=== PATIENT | male | born 1950 | race Caucasian/White ===

== ENCOUNTER 2023-11-09 08:43 | Outpatient (AMB) | payer OTHER, SELFPAY ==
--- NOTE | 2023-11-09 08:48 | MHC.OFFVIS ---
Intake Vital Signs 11/09/23 08:53 Height 5 ft 11 in Weight 187 lb BMI 26.1 Intake Visit Reasons: FC- Open fx / dislocation LT thumb Intake Note: Meir 72 yr old male who is a right hand dominant, presents today a new patient visit for his left thumb injury. States he tripped over his shoes on . States his thumb hyper extended. States his thumb sherley back so far he has a big laceration and was also dislocated and reduced at Urgent care in [place]. Currently states he has minimal pain and Alieve helps. States his laceration continues to bleed. Allergies Sulfa (Sulfonamide Antibiotics) [SULFA (SULFONAMIDE ANTIBIOTICS)] Adverse Reaction (Intermediate, Unverified 11/09/23 08:53) PAIN HPI FC- Open fx / dislocation LT thumb HPI Details Meir is a 72 year old right hand dominant man who presents for a left thumb injury after a fall, DOI: 11/06/23. He says he fell and hyperextended his left thumb, dislocating it and causing a rupture of the volar tissues. His thumb was reduced at an urgent care. He is seen today with minimal complaints of pain, which is managed with aleve, but he says his cut continues to bleed. He is currently on Keflex. 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 He has a hx of bladder cancer, which he says is in remission, and he denies any other medical concerns. He denies any blood thinners or other medication except for Folic Acid & Vitamin D. [facility] Social History (Updated 11/09/23 @ 08:55 by Dorinda Frias [facility]) Current occupational status: retired Current occupation: right hand Review of Systems Const All systems reviewed & are unremarkable except as noted in HPI and below Physical Exam Vital Signs: BMI result Body Mass Index 26.1 Const General: cooperative, healthy appearing and no acute distress Orientation/consciousness: patient oriented x3 HEENT Head: Yes normocephalic and Yes atraumatic Eyes EOM: EOMs intact bilaterally Resp Effort & Inspection: normal respiratory effort and able to speak in complete sentences Cardio Jugular venous distension: no JVD Skin General skin exam: turgor normal Rashes: no rashes Neuro General: patient oriented x3 Extrem Other: Evaluation of Left Upper Extremity: The patient is alert, oriented, and in no acute distress Neuro: Intact but not normal sensation to ulnar digital nerve distribution of the thumb, and dense numbness to the radial digital nerve distribution of the thumb Vascular: Cap refill brisk ROM: He can make a fist and extend all his fingers. It looks like he might have a faint amount of flexion at the IP joint, but not much Skin: His thumb is swollen He has a transverse laceration, somewhat obliquely oriented, across the volar IP joint of the thumb. This measures ~ 3-4 cm, sutured closed but with some very mild serosanguinous drainage. The dressing was removed today in clinic and we did not see any active bleeding. Cap refill brisk Radiographs: 3 views of the left thumb were taken and viewed by me today in clinic. Concerning the IP joint, on the lateral view, I am concerned he has a volar avulsion fx of the distal phalanx volar base with some subluxation of the DIP joint. I am concerned this may involved the FDP tendon insertion. He also has a non-displaced fx of the distal phalanx radial base. 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 Psych Appearance: grossly normal Affect: normal affect Attitude: cooperative Assessment & Plan Assessment & Plan (1) Open fracture of distal phalanx of left thumb: Code(s): S62.522B - Displaced fracture of distal phalanx of left thumb, initial encounter for open fracture (2) Fracture dislocation of left thumb: Code(s): S62.502A - Fracture of unspecified phalanx of left thumb, initial encounter for closed fracture (3) Numbness of left thumb: Code(s): R20.0 - Anesthesia of skin Plan Assessment & Plan: 1. Left thumb IP joint open fracture dislocation From a fall, DOI: 11/06/23 Reduced and sutures at Urgent care on 11/06/23 2. Possible FDP tendon avulsion/fracture of the insertion 3. Left thumb numbness More normal sensation in the ulnar digital nerve distribution, dense numbness radial digital nerve distribution No laceration, but a rupture of the volar tissues from the dislocation. Cap refill brisk I believe this can be managed non operatively I educated him about these conditions I discussed operative and non-operative treatment options The patient would like to proceed with surgery He was placed in a fresh dressing and a thumb splint to wear until his surgery. The risks and benefits of operative treatment were discussed with the patient and the patient wishes to proceed with surgery. These risks include, but are not limited to risk of damage to blood vessels, nerves, tendons, infection, recurrence, incomplete relief of preoperative symptoms, persistent pain, possible need for further surgery and the risks associated with regional blocks and anesthesia. The plan is to take the patient to the operating room sometime on 11/14/23 for the following procedures: 1. Left thumb I&D, under general 2. Left thumb possible ORIF of distal phalanx, under general 3. Left thumb possible IP joint arthrodesis, under general All of the preoperative paperwork including the consent was filled out today. All the patient's questions were answered. The patient understands that they will be contacted by our farm marketer soon to schedule this procedure He denies Diabetes, blood thinners, asthma, heart, lung, kidney issues He is currently on Keflex Please note that greater than 50 minutes was spent with this patient going over the history, evaluating the patient and radiographs, formulating possible treatment options, discussing them with the patient, and documenting the visit. Scribed for Shantell Pennington MD by Smith Tran, medical records analyst, on 11/09/22 at 9:30 AM, EST. Orders: Orders XR hand LT min 3V Today M79.642 - Pain in left hand Coding Level of Care Code New Pt Level 4 (14593) Diagnoses Open fracture of distal phalanx of left thumb S62.522B Fracture dislocation of left thumb S62.502A Numbness of left thumb R20.0
[2023-11-09 08:53] VITALS: BMI 26.1
== END 2023-11-09 09:54 | disposition home or self-care (01) ==
PROVIDERS: PCP Internal Medicine; Visit Provider Orthopaedic Surgery
DX: S62.522B Displaced fracture of distal phalanx of left thumb, initial encounter for open fracture (principal); R20.0 Anesthesia of skin
CPT/HCPCS: 99204

== ENCOUNTER 2023-11-09 08:43 | Outpatient (REF) | payer OTHER, SELFPAY ==
--- NOTE | ~2023-11-09 | XR_ITS ---
EXAMINATION: XR HAND, LEFT CLINICAL INFORMATION: Pain in left hand, attention left thumb. COMPARISON: None available. TECHNIQUE: PA, lateral, and oblique views of the left hand. FINDINGS: [id number] degenerative changes in the first carpometacarpal joint with joint space narrowing and hypertrophic change. Moderate degenerative changes with hypertrophic change in scattered IP joints, most notable in the IP joints of the thumb, 2nd DIP and 3rd DIP. Fingers overlap on the lateral view, limiting evaluation. Punctate radiodensity in the soft tissues adjacent to the 1st metacarpal head, possibly a foreign body and recommend correlation with clinical exam for further management. XR/XR hand LT min 3V IMPRESSION: 1. Qapjppzu-gx-hbbeqg degenerative changes in the 1st carpometacarpal joint. 2. Moderate degenerative changes with hypertrophic change in scattered IP joints most notable in the thumb, 2nd DIP and 3rd DIP. Recommend follow-up imaging in 10-14 days if fracture is suspected.
== END 2023-11-09 08:44 | disposition home or self-care (01) ==
LOC: HO.HOSX 08:43
PROVIDERS: PCP Internal Medicine; Visit Provider Orthopaedic Surgery
DX: S62.522A Displaced fracture of distal phalanx of left thumb, initial encounter for closed fracture (principal); R20.0 Anesthesia of skin; W18.09XA Striking against other object with subsequent fall, initial encounter; Y93.9 Activity, unspecified; Y92.9 Unspecified place or not applicable; Y99.9 Unspecified external cause status
CPT/HCPCS: 73130; 99202

== ENCOUNTER 2023-11-14 06:51 | Day surgery (SDC) | payer OTHER, SELFPAY ==
--- NOTE | ~2023-11-14 | FL_ITS ---
EXAMINATION: XR FLUOROSCOPY WITH IMAGES CLINICAL INFORMATION: COMPARISON: Previous x-ray 11/09/2023 TECHNIQUE: Fluoroscopy Supervised By: Dr. Shantell Pennington. Fluoroscopy Time: 32.0 seconds. Cumulative Dose: 0.6770 mGy. DAP: 0.0409 Gycm2. Images: 10. FINDINGS: There is abnormal alignment or subluxation of the IP joint of the left thumb. There is a nondisplaced fracture of the distal phalanx of the left intra-articular with the IP joint. There are additional soft tissue ossifications adjacent to the IP joint of the thumb questionable for fracture fragments. Final images demonstrate a new K wire or pin across the IP joint of the thumb FL/FL guidance in OR IMPRESSION: 1. Fluoroscopy guidance for left thumb IP joint arthrodesis. 2. Fracture of the distal phalanx of the left thumb.
[2023-11-14 07:55] VITALS: BMI 26.7
[2023-11-14 08:20] VITALS: BP 148/70; PULSE 54; RESP 16; TEMP 36.7; O2SAT 97
--- NOTE | 2023-11-14 09:02 | HO.ANESPROP2 ---
HPI - Anesthesia Eval Consult details Narrative: 72 yo M with left thumb fracture. Smoker. [facility] Active Problems Active Problems: All Active Problems (Updated 11/09/23 @ 12:39 by Shantell Pennington MD) Numbness of left thumb (Acute) Fracture dislocation of left thumb (Acute) Open fracture of distal phalanx of left thumb (Acute) Family History Family history of problems with anesthesia: No Surgical History History of Problems with Anesthesia: No Social History Social History (Updated 11/09/23 @ 08:55 by Dorinda Frias [facility]) Patient Tobacco Use Status: Current someday Tobacco user Tobacco use type: Cigarette Second Hand Smoke Exposure: No Use of substances other than those prescribed or required for medical reasons: No Are you DNR?: No Advance Directives: No Advance Directives Information Provided: Yes Advance Directives on File: No Current occupational status: retired Current occupation: right hand Meds Allergies Allergy/AdvReac Type Severity Reaction Status Date / Time Sulfa (Sulfonamide AdvReac Intermediate PAIN Verified 11/14/23 08:28 Antibiotics) [SULFA (SULFONAMIDE ANTIBIOTICS)] Home Medications Medication Instructions Recorded Confirmed Last Taken Type cephalexin 500 mg capsule 500 mg PO BID 11/09/23 11/14/23 11/13/23 History folic acid 1 mg tablet 1 mg PO DAILY 11/09/23 11/14/23 11/13/23 History Exam Exam Date and Time: November 14, 2023 0900 Height,Weight and Vital Signs: Height 5 ft 11 in Weight 86.693 kg Last Vital Signs Temp 98.0 F 11/14/23 08:20 Pulse 54 11/14/23 08:20 Resp 16 11/14/23 08:20 BP 148/70 H 11/14/23 08:20 Pulse Ox 97 11/14/23 08:20 O2 Del Method Room Air 11/14/23 08:20 Airway Mallampati Class: I TM Dist: >3cm Neck ROM: Full Loose/Missing/Broken Teeth: Yes (temporary tooth left upper jaw removed - left at home) Heart: S1S2 Lungs: CTAB Assessment and Plan Assessment Anesthesia Assessment: Anesthesia Plan Discussed and Chart Reviewed Final Anesthetic Review Family History of Problems with Anesthesia: No History of Problems with Anesthesia: No NPO: Yes ASA Class: II Final Preanesthetic Review: No Changes in Pt Med Stat, Meds/Allgs Chart Reviewed, Consent Obtained/Reviewed and Anes Risks/Benef Reviewed Patient Risk: Low Procedure Risk: Low Anesthetic Plan Anesthetic Plan: GA and Agree w/ Assess. and Plan Disposition: Standard PACU
--- NOTE | 2023-11-14 09:04 | MHC.SHP ---
Pre-Procedural Eval Section A Date of Service: 11/14/23 The patient is an INPATIENT: No Changes since office visit: No Cold of Flu in the past 2 weeks, No New Medical Problems, No Changes in Medication and No Patient answered all questions The History & Physical has been completed within 30 days and I have reviewed it.: Yes Section B Chief Complaint: Dislocation of interphalangeal joint of unspecifie Allergies: Allergies Allergy/AdvReac Type Severity Reaction Status Date / Time Sulfa (Sulfonamide AdvReac Intermediate PAIN Verified 11/14/23 08:28 Antibiotics) [SULFA (SULFONAMIDE ANTIBIOTICS)] Plan I have reviewed the history and physical and performed a pertinent physical examination on my patient. No changes have occurred unless specified. Time Spent With Patient Time: Total time managing care of this patient today ____ minutes.
--- NOTE | 2023-11-14 09:04 | W.PM.OPN ---
Operative Note Operative Note Date of Service: 11/14/23 Narrative: Operative Note Narrative: Preop diagnosis: 1. left thumb open distal phalanx fracture and dorsal dislocation Postop diagnosis: Same Procedure: 1. left thumb distal phalanx fracture and IP joint dislocation ORIF 2. left thumb I&D of open fracture Surgeon: Shantell Pennington MD Anesthesia: General Anesthesia Findings: left thumb FPL tendon insertion intact , avulsion fracture off the volar radial aspect of the distal phalanx with displacement, grossly unstable IP joint with dorsal dislocation Implants: 0.054 K-wire x1 Tourniquet time: 49 minutes EBL: Minimal Specimen: None Drains: None Complications: None Disposition: Brought to the recovery room in stable condition Plan: Follow-up in 10-14 days for a wound check, postop radiographs and for placement in a short-arm thumb spica cast or splint Anticipate K-wire removal at 6-8 weeks postop, if pin site doing well try to keep her 8 weeks to allow for increased stiffness instability At the IP joint. Indications: The patient is 72 years old with with an open left thumb IP joint dorsal dislocation and fracture off the volar radial aspect of the distal phalanx. He also has some dense numbness in the radial digital nerve distribution. There is a deep skin tear down to the joint and fracture on the volar aspect of the thumb, with a history of no sharp laceration. . The risks and benefits of operative treatment, including but not limited to risk of damage to blood vessels, nerves, tendons, infection, recurrence, delayed or nonunion of fracture, persistent pain or numbness, incomplete resolution of preoperative symptoms, or need for further surgery were discussed with the patient and they wished to proceed with surgery. Procedure: Once consent was obtained patient was brought back to the operating suite and placed in the operating table in a supine position. [A regional block was performed by the anesthesia team]. Perioperative antibiotics and general anesthesia was administered by the anesthesia team. A tourniquet was applied to the proximal aspect of the [ ] upper extremity and the limb was prepped and draped in a standard surgical fashion. Tourniquet was not inflated during the case. The FluoroScan was used during the case to assist with our fracture reduction and placement of all implants. The sutures were removed from the thumb, as he had the skin tear on the volar aspect of the IP joint. I then dissected down easily to the fracture fragment on the volar radial aspect of the IP joint and the IP joint in general. I was happy to see that the FPL tendon insertion appeared to be intact, and the FPL tendon in good condition. At this point the fracture fragment and IP joint were copiously irrigated with normal saline. A small curette was used to debride the bony fracture. The IP joint was then reduced and a 0.054 K-wire was placed retrograde through the tip of the distal phalanx. This was then advanced across the IP joint and down to the base of the middle phalanx. I was satisfied with our reduction of the IP joint and placement of this K-wire on multiple fluoroscopic images. the pin was bent cut short had a pin cap applied. I then attempted to reduce the fracture fragment off the volar radial base of the distal phalanx, as it does have ligamentous attachment. The fracture fragment was reduced and a 0.045 K-wire was passed through the fragment and obliquely across the body of the distal phalanx. Unfortunately, this resulted in fragmentation of this bony fragment. The K-wire was then removed. The fracture fragments with the ligamentous attachment were then positioned near the bony fracture surface. I elected to place no for the K-wires at this point , as I believe we can obtain stability of the joint in this 72-year-old man by keeping the K-wire in place to allow for some stiffness in the joint. The wounds were Again copiously irrigated with normal saline. a digital block was performed using some 0.5% plain ropivacaine for postop pain control. A Sterile dressing and Volar thumb spica splint extending to the forearm was applied. The patient appears to have tolerated the procedure well and with no complications. All digits were well vascularized at the conclusion of the case.
[2023-11-14 11:05] VITALS: BP 152/87; PULSE 83; RESP 20; TEMP 36.1; O2SAT 93
[2023-11-14 11:10] VITALS: BP 159/84; PULSE 60; RESP 20; O2SAT 92
[2023-11-14 11:15] VITALS: BP 153/81; PULSE 62; RESP 20; O2SAT 92
[2023-11-14 11:20] VITALS: BP 123/64; PULSE 56; RESP 20; O2SAT 88
[2023-11-14 11:35] VITALS: BP 138/79; PULSE 56; RESP 20; TEMP 36.4; O2SAT 98
== END 2023-11-14 12:12 | disposition home or self-care (01) ==
PROVIDERS: PCP Internal Medicine; Visit Provider Orthopaedic Surgery
PROC: (CPT 26765; principal; 2023-11-14 08:40)
DX: S62.522B Displaced fracture of distal phalanx of left thumb, initial encounter for open fracture (principal); M18.12 Unilateral primary osteoarthritis of first carpometacarpal joint, left hand; R20.0 Anesthesia of skin; W01.0XXA Fall on same level from slipping, tripping and stumbling without subsequent striking against object, initial encounter; Y93.01 Activity, walking, marching and hiking; Y92.009 Unspecified place in unspecified non-institutional (private) residence as the place of occurrence of the external cause; Y99.8 Other external cause status; Z85.51 Personal history of malignant neoplasm of bladder; Z88.2 Allergy status to sulfonamides; F17.210 Nicotine dependence, cigarettes, uncomplicated; Z79.899 Other long term (current) drug therapy
CPT/HCPCS: 26765; J0690; J1100; J2371; J2405; J2704; J2795; J3010

== ENCOUNTER → 2023-11-14 06:51 | Outpatient (BNV) | payer OTHER, SELFPAY | PROVIDERS: PCP Internal Medicine; Visit Provider Orthopaedic Surgery | DX: S62.522B Displaced fracture of distal phalanx of left thumb, initial encounter for open fracture (principal) | CPT/HCPCS: 26765 ==

== ENCOUNTER 2023-11-28 08:17 | Outpatient (REF) | payer OTHER, SELFPAY ==
--- NOTE | ~2023-11-28 | XR_ITS ---
EXAMINATION: XR HAND, LEFT CLINICAL INFORMATION: Pain in left hand COMPARISON: Left hand 11/09/2023 TECHNIQUE: PA, lateral, and oblique views of the left hand. FINDINGS: Satisfactory appearance of interval placement of K wire across the IP joint of the thumb. Alignment is within normal limits. There is moderate degenerative change with hypertrophic change in the IP joint of the thumb. Comminuted intra-articular fracture of the base of the distal phalanx of the thumb with small bony fragment inferior to the fracture site. Punctate radiodensity seen in the soft tissues adjacent to the first metacarpal head. There is moderate degenerative change of the first carpometacarpal joint. There are scattered degenerative changes including the cyst second DIP and third DIP joints. XR/XR hand LT min 3V IMPRESSION: 1. Satisfactory appearance of interval placement of K wire across the IP joint of the thumb. 2. Comminuted intra-articular fracture of the base of the distal phalanx of the thumb.
== END 2023-11-28 08:18 | disposition home or self-care (01) ==
LOC: HO.HOSX 08:17
PROVIDERS: Visit Provider Physician Assistant
DX: S62.525D Nondisplaced fracture of distal phalanx of left thumb, subsequent encounter for fracture with routine healing (principal); M79.642 Pain in left hand; R20.0 Anesthesia of skin; X58.XXXD Exposure to other specified factors, subsequent encounter
CPT/HCPCS: 29085; 73130; 99212

== ENCOUNTER 2023-11-28 09:06 | Outpatient (AMB) | payer OTHER, SELFPAY ==
--- NOTE | 2023-11-28 09:14 | A.OFFVIS_ITS ---
Intake Intake Visit Reasons: PO Lt thumb I&D ORIF vs IP artho 11/14/23 AR Intake Note: Meir 73 year old male presents today for a post operative left thumb ORIF, I&D on 11/14/23. Splint removed and xrays updated. Patient reports he is doing well, his pain has been tolerable. Allergies Sulfa (Sulfonamide Antibiotics) [SULFA (SULFONAMIDE ANTIBIOTICS)] Adverse Reaction (Intermediate, Verified 11/28/23 09:28) PAIN HPI PO Lt thumb I&D ORIF vs IP artho 11/14/23 AR HPI Details 73-year-old male who [facility]op left thumb ORIF, I&D, 11/14/[address] Pennington. He continues to have swelling and tolerable pain in his thumb but is doing well overall. He has no other concerns today. [facility] Social History Comment: counts correct Patient Tobacco Use Status: Current someday Tobacco user Tobacco use type: Cigarette Second Hand Smoke Exposure: No Current occupational status: retired Current occupation: right hand Review of Systems Const All systems reviewed & are unremarkable except as noted in HPI and below Physical Exam Extrem Other: Left thumb: Normal to inspection. Incision is clean, dry and intact. Pin site clean, dry and intact. NVI. Office Procedures Casting/Splints 50862-[facility]/Wrist Cast Application Procedure code (CPT) selection complete Results Reviewed Results Reviewed: X-rays of the left hand obtained in the office today show pin in a good position and fracture fragment stable. Assessment & Plan Assessment & Plan (1) Fracture dislocation of left thumb: Code(s): S62.502A - Fracture of unspecified phalanx of left thumb, initial encounter for closed fracture Qualifiers: Encounter type: subsequent encounter Fracture type: closed Fracture healing: with routine healing Qualified Code(s): S62.502D - Fracture of unspecified phalanx of left thumb, subsequent encounter for fracture with routine healing (2) Open fracture of distal phalanx of left thumb: Code(s): S62.522B - Displaced fracture of distal phalanx of left thumb, initial encounter for open fracture Qualifiers: Encounter type: subsequent encounter Fracture alignment: nondisplaced Fracture healing: with routine healing Qualified Code(s): S62.525D - Nondisplaced fracture of distal phalanx of left thumb, subsequent encounter for fracture with routine healing (3) Numbness of left thumb: Code(s): R20.0 - Anesthesia of skin Plan Sutures removed today, steri strips applied. Pin will remain intact for another 4-6 weeks which will total 6-8 weeks since his DOI. He was placed in a short arm thumb spica cast in the office today. He will avoid any type of lifting, pushing, pulling or carrying greater than a cellphone. I did inform that if he gets this wet or dirty, he should come to the office to get this changed. I would like to see him back in 4-5 weeks for cast off, x-rays, with Dr. Pennington, sooner if needed. Anticipate K-wire removal at 6-8 weeks postop, if pin site doing well try to keep 8 weeks to allow for increased stiffness instability At the IP joint. Orders: Orders XR hand LT min 3V Today M79.642 - Pain in left hand Patient Instructions: Scribed for Merly Holder PA-C, by John Ruiz bilingual medical receptionist, on 11/28/2023 at 9:15 AM EST. I, Merly Holder PA-C, have personally reviewed and agree with the information entered by the scribe. Coding Level of Care Code Global (86456) Diagnoses Closed fracture dislocation of left thumb with routine healing, subsequent encounter S62.502D Encounter type: subsequent encounter Fracture type: closed Fracture healing: with routine healing Open nondisplaced fracture of distal phalanx of left thumb with routine healing, subsequent encounter S62.525D Encounter type: subsequent encounter Fracture alignment: nondisplaced Fracture healing: with routine healing Numbness of left thumb R20.0 CPT Codes Casting - CPT: 08055-[facility]/Wrist Cast Application ([id number])
== END 2023-11-28 10:44 | disposition home or self-care (01) ==
PROVIDERS: PCP Internal Medicine; Visit Provider Physician Assistant
DX: S62.525D Nondisplaced fracture of distal phalanx of left thumb, subsequent encounter for fracture with routine healing (principal); R20.0 Anesthesia of skin
CPT/HCPCS: 29085; 99024

== ENCOUNTER 2023-12-12 12:40 | Outpatient (AMB) | payer OTHER, SELFPAY ==
--- NOTE | 2023-12-12 12:57 | A.OFFVIS_ITS ---
Intake Intake Visit Reasons: PO-Lt thumb I&D ORIF vs IP -cast change Intake Note: Haley 73 year old male presents today for a cast change s/p left thumb I&D, ORIF on 11/14/23. Patient reports that he feels his dressing around pin has moved. Allergies Sulfa (Sulfonamide Antibiotics) [SULFA (SULFONAMIDE ANTIBIOTICS)] Adverse Reaction (Intermediate, Verified 12/12/23 13:12) PAIN HPI PO-Lt thumb I&D ORIF vs IP -cast change HPI Details 73-year-old male who returns to the [facility] today for post-op left thumb I&D, ORIF on 11/14/23. He states his gauze got caught on the pin and the dressing around the pin has moved. He has no other concerns today. [facility] Social History Comment: counts correct Patient Tobacco Use Status: Current someday Tobacco user Tobacco use type: Cigarette Second Hand Smoke Exposure: No Current occupational status: retired Current occupation: right hand Review of Systems Const All systems reviewed & are unremarkable except as noted in HPI and below Physical Exam Extrem Other: Left thumb: Pin is intact. There is no evidence of pin migration. NVI. Office Procedures Casting/Splints 58283-Iqrj/Wrist Cast Application Procedure code (CPT) selection complete Results Reviewed Results Reviewed: Xrays were obtained in the office today and personally reviewed by me of the left hand show intact pin Assessment & Plan Assessment & Plan (1) Fracture dislocation of left thumb: Code(s): S62.502A - Fracture of unspecified phalanx of left thumb, initial encounter for closed fracture Qualifiers: Encounter type: subsequent encounter Fracture healing: with routine healing Fracture type: closed Qualified Code(s): S62.502D - Fracture of unspecified phalanx of left thumb, subsequent encounter for fracture with routine healing (2) Open fracture of distal phalanx of left thumb: Code(s): S62.522B - Displaced fracture of distal phalanx of left thumb, initial encounter for open fracture Qualifiers: Encounter type: subsequent encounter Fracture alignment: nondisplaced Fracture healing: with routine healing Qualified Code(s): S62.525D - Nondisplaced fracture of distal phalanx of left thumb, subsequent encounter for fracture with routine healing (3) Numbness of left thumb: Code(s): R20.0 - Anesthesia of skin Plan Pin was well padded and another thumb spica cast was placed in the office today. He will follow-up as planned with Dr. Pennington. Orders: Orders XR hand LT min 3V Today M79.642 - Pain in left hand Patient Instructions: Scribed for Merly Holder PA-C, by John Ruiz medical office technologist, on 12/12/2023 at 12:30 PM EST. I, Merly Holder PA-C, have personally reviewed and agree with the information entered by the scribe. Coding Level of Care Code Global (64710) Diagnoses Closed fracture dislocation of left thumb with routine healing, subsequent encounter S62.502D Encounter type: subsequent encounter Fracture healing: with routine healing Fracture type: closed Open nondisplaced fracture of distal phalanx of left thumb with routine healing, subsequent encounter S62.525D Encounter type: subsequent encounter Fracture alignment: nondisplaced Fracture healing: with routine healing Numbness of left thumb R20.0 CPT Codes Casting - CPT: 72168-Xhwm/Wrist Cast Application ([id number])
== END 2023-12-12 13:59 | disposition home or self-care (01) ==
PROVIDERS: PCP Internal Medicine; Visit Provider Physician Assistant
DX: S62.525D Nondisplaced fracture of distal phalanx of left thumb, subsequent encounter for fracture with routine healing (principal); R20.0 Anesthesia of skin
CPT/HCPCS: 29085; 99024

== ENCOUNTER 2023-12-12 12:40 | Outpatient (REF) | payer OTHER, SELFPAY ==
--- NOTE | ~2023-12-12 | XR_ITS ---
EXAMINATION: XR HAND, LEFT CLINICAL INFORMATION: Left hand pain COMPARISON: 11/09 and 11/28/2023 TECHNIQUE: PA, lateral, and oblique views of the left hand. FINDINGS: K wire traverses first proximal and distal phalanges. Alignment appears satisfactory. There is limited evaluation of first distal phalangeal intra-articular fracture with adjacent small bony fracture fragment due to overlying cast. Interphalangeal joint space narrowing and degenerative changes first carpometacarpal joint again demonstrated. Punctate metallic hyperdensity adjacent to the first metacarpal head again seen. XR/XR hand LT min 3V IMPRESSION: Casted, fixated first interphalangeal intra-articular fracture.
== END 2023-12-12 12:41 | disposition home or self-care (01) ==
LOC: HO.HOSX 12:40
PROVIDERS: PCP Internal Medicine; Visit Provider Physician Assistant
DX: M79.642 Pain in left hand (principal); S62.525A Nondisplaced fracture of distal phalanx of left thumb, initial encounter for closed fracture; X58.XXXA Exposure to other specified factors, initial encounter; Y93.9 Activity, unspecified; Y92.89 Other specified places as the place of occurrence of the external cause; Y99.9 Unspecified external cause status; R20.0 Anesthesia of skin
CPT/HCPCS: 29085; 73130; 99212

== ENCOUNTER 2023-12-28 08:54 | Outpatient (REF) | payer OTHER, SELFPAY ==
--- NOTE | ~2023-12-28 | XR_ITS ---
EXAMINATION: XR HAND, LEFT CLINICAL INFORMATION: Pain in left hand Attention to thumb COMPARISON: None available. TECHNIQUE: PA, lateral, and oblique views of the left hand. FINDINGS: Satisfactory appearance of placement of K wire across the IP joint of the thumb. Alignment is within normal limits. There is moderate degenerative change with hypertrophic change and the IP joint of the thumb. Comminuted intra-articular fracture of the base of the distal phalanx of the thumb with small bony fragment inferior to the fracture site is again noted. Punctate radiodensities is seen in the soft tissues adjacent to the first metacarpal head. There is moderate degenerative change of the first carpometacarpal joint. There is scattered degenerative changes including the second DIP joint and the third DIP joint. XR/XR hand LT min 3V IMPRESSION: 1. Satisfactory appearance of K wire across the IP joint of the thumb. 2. No change in position or alignment of comminuted intra-articular fracture of the base of the distal phalanx of the thumb.
== END 2023-12-28 08:55 | disposition home or self-care (01) ==
LOC: HO.HOSX 08:54
PROVIDERS: Visit Provider Orthopaedic Surgery
DX: M79.642 Pain in left hand (principal); S62.525D Nondisplaced fracture of distal phalanx of left thumb, subsequent encounter for fracture with routine healing; X58.XXXD Exposure to other specified factors, subsequent encounter; R20.2 Paresthesia of skin
CPT/HCPCS: 73130; 99212

== ENCOUNTER 2023-12-28 11:02 | Outpatient (AMB) | payer OTHER, SELFPAY ==
--- NOTE | 2023-12-28 11:24 | A.OFFVIS_ITS ---
Intake Intake Visit Reasons: PO-Lt thumb I&D ORIF vs IP artho 11/14/23 AR Intake Note: Haley 73 year old male presents today for his P/O left thumb I&D, ORIF on 11/14/23. Cast removed and xrays updated. States he has stiffness and soreness however he is doing well over. Allergies Sulfa (Sulfonamide Antibiotics) [SULFA (SULFONAMIDE ANTIBIOTICS)] Adverse Reaction (Intermediate, Verified 12/28/23 11:25) PAIN HPI PO-Lt thumb I&D ORIF vs IP artho 11/14/23 AR HPI Details Meir is a 73 year old right hand dominant man who returns S/P left thumb distal phalanx ORIF, with IP joint dislocation & I&D, DOS: 11/14/23. He says he is doing well. He has some stiffness in his thumb and still has some numbness at the tip [facility] Social History Comment: counts correct Patient Tobacco Use Status: Current someday Tobacco user Tobacco use type: Cigarette Second Hand Smoke Exposure: No Current occupational status: retired Current occupation: right hand Review of Systems Const All systems reviewed & are unremarkable except as noted in HPI and below Physical Exam Const General: no acute distress and alert Orientation/consciousness: patient oriented x3 Neuro General: patient oriented x3 Extrem Other: The patient was alert oriented and in no acute distress The pin-site is healing well with no erythema drainage or evidence of infection. Sutures removed and Steri-Strips applied He very much wanted his K-wire removed today in clinic. K-wire removed today in clinic, which he tolerated well He can make a fist Good wrist ROM He still has some numbness to the radial aspect of the tip of his left thumb, normal sensation to the ulnar aspect of the thumb and all other digits. Cap refill is brisk Radiographs: 3 views of the left hand, with attention to the thumb, were taken and viewed by me today in clinic. They show a thumb distal phalanx fracture with satisfactory position of The IP joint & the K-wire. Psych Appearance: grossly normal Affect: normal affect Attitude: cooperative Assessment & Plan Assessment & Plan (1) Open fracture of distal phalanx of left thumb: Code(s): S62.522B - Displaced fracture of distal phalanx of left thumb, initial encounter for open fracture Qualifiers: Encounter type: subsequent encounter Fracture alignment: nondisplaced Fracture healing: with routine healing Qualified Code(s): S62.525D - Nondisplaced fracture of distal phalanx of left thumb, subsequent encounter for fracture with routine healing (2) Fracture dislocation of left thumb: Code(s): S62.502A - Fracture of unspecified phalanx of left thumb, initial encounter for closed fracture Qualifiers: Encounter type: subsequent encounter Fracture healing: with routine healing Fracture type: closed Qualified Code(s): S62.502D - Fracture of unspecified phalanx of left thumb, subsequent encounter for fracture with routine healing (3) Numbness of left thumb: Code(s): R20.0 - Anesthesia of skin Plan Assessment & Plan: 1. Left thumb IP joint open fracture dislocation, S/P ORIF From a fall, DOI: 11/06/23 DOS: 11/14/23 2. Left thumb distal phalanx open fracture, S/P ORIF DOS: 11/14/23 K-wire removed: 12/28/23 The patient appears to be doing well post-operatively I educated him about the post-operative course I am unsure how much ROM he may develop in the IP joint, and he is aware of this. He may benefit from an IP joint arthrodesis in the future I explained the signs and symptoms of infection, if the patient develops any new or worsening erythema, drainage, pain, or warmth they should contact the clinic or attend the ED. I discussed activity modifications, he is to lift nothing heavier than a cellphone for the next 4 weeks He is to avoid any pinching or gripping at this time He will perform gentle ROM exercises at home He should avoid any underwater activities for the next 5 days He should gently massage about the incision site to reduce the risk of hypersensitivity He may contact the clinic for an OT referral if he continues to have stiffness He will follow up in 4-6 weeks for a ROM check 3. Left thumb numbness Some numbness in the radial tip of the thumb, more normal sensation in the ulnar tip of the thumb Improved following surgery Scribed for Shantell Pennington MD by Smith Tran medical accounting clerk, on 12/28/23 at 11:45 AM, EST. Orders: Orders XR hand LT min 3V Today M79.642 - Pain in left hand Coding Level of Care Code Global (41776) Diagnoses Open nondisplaced fracture of distal phalanx of left thumb with routine healing, subsequent encounter S62.525D Encounter type: subsequent encounter Fracture alignment: nondisplaced Fracture healing: with routine healing Closed fracture dislocation of left thumb with routine healing, subsequent encounter S62.502D Encounter type: subsequent encounter Fracture healing: with routine healing Fracture type: closed Numbness of left thumb R20.0
== END 2023-12-28 11:57 | disposition home or self-care (01) ==
PROVIDERS: PCP Internal Medicine; Visit Provider Orthopaedic Surgery
DX: S62.525D Nondisplaced fracture of distal phalanx of left thumb, subsequent encounter for fracture with routine healing (principal); S62.502D Fracture of unspecified phalanx of left thumb, subsequent encounter for fracture with routine healing; R20.0 Anesthesia of skin
CPT/HCPCS: 99024

== ENCOUNTER 2024-02-08 10:08 | Outpatient (AMB) | payer OTHER, SELFPAY ==
--- NOTE | 2024-02-08 10:08 | MHC.OFFVIS ---
Intake Intake Visit Reasons: PO-Lt thumb I&D ORIF vs IP artho 11/14/23 AR Intake Note: Haley 73 year old male presents today for his P/O left thumb I&D, ORIF on 11/14/23. States he has been working on his ROM and is improving everyday. Pt states the swelling has gone down since his last visit as well. Allergies Sulfa (Sulfonamide Antibiotics) [SULFA (SULFONAMIDE ANTIBIOTICS)] Adverse Reaction (Intermediate, Verified 02/08/24 10:09) PAIN HPI PO-Lt thumb I&D ORIF vs IP artho 11/14/23 AR HPI Details Meir is a 73 year old right hand dominant man who returns S/P left thumb distal phalanx ORIF, with IP joint dislocation & I&D, DOS: 11/14/23. He is here for a ROM check. He says he is doing well, and has been working on ROM exercises at home. He says his ROM has improved and he says his swelling has resolved as well. He is happy with his progress, and he says his sensation has continued to improve. He has some pain with pressure at times, such as gripping to pull his socks on. He has been using his thumb for lightweight activities. [facility] Social History (Updated 02/08/24 @ 10:14 by Pam Burr [facility]) Comment: counts correct Patient Tobacco Use Status: Current someday Tobacco user Tobacco use type: Cigarette Cigarettes Per Day: 5 Second Hand Smoke Exposure: No Current occupational status: retired Current occupation: right hand Review of Systems Const All systems reviewed & are unremarkable except as noted in HPI and below Physical Exam Const General: no acute distress and alert Orientation/consciousness: patient oriented x3 Neuro General: patient oriented x3 Extrem Other: Evaluation of Left Upper Extremity: The patient is alert, oriented, and in no acute distress Neuro: He still has some numbness to the radial aspect of the tip of his left thumb, improved from prior, normal sensation to the ulnar aspect of the thumb and all other digits. Vascular: Cap refill brisk ROM: He can make a fist and extend all his digits ~40 degrees of flexion of the thumb IP joint Good wrist ROM Radiographs: 3 views of the left hand, with attention to the thumb, were taken and viewed by me today in clinic. They show a healed thumb distal phalanx fracture with satisfactory fracture alignment. Psych Appearance: grossly normal Affect: normal affect Attitude: cooperative Assessment & Plan Assessment & Plan (1) Open fracture of distal phalanx of left thumb: Code(s): S62.522B - Displaced fracture of distal phalanx of left thumb, initial encounter for open fracture Qualifiers: Encounter type: subsequent encounter Fracture alignment: nondisplaced Fracture healing: with routine healing Qualified Code(s): S62.525D - Nondisplaced fracture of distal phalanx of left thumb, subsequent encounter for fracture with routine healing (2) Fracture dislocation of left thumb: Code(s): S62.502A - Fracture of unspecified phalanx of left thumb, initial encounter for closed fracture Qualifiers: Encounter type: subsequent encounter Fracture healing: with routine healing Fracture type: closed Qualified Code(s): S62.502D - Fracture of unspecified phalanx of left thumb, subsequent encounter for fracture with routine healing (3) Numbness of left thumb: Code(s): R20.0 - Anesthesia of skin Plan Assessment & Plan: 1. Left thumb IP joint open fracture dislocation, S/P ORIF From a fall, DOI: 11/06/23 DOS: 11/14/23 2. Left thumb distal phalanx open fracture, S/P ORIF DOS: 11/14/23 K-wire removed: 12/28/23 The patient appears to be doing well post-operatively He is happy with the results of his surgery He now has about 40 degrees of flexion at the IP joint which he is happy with. He will continue to perform ROM exercises at home He will use his thumb for more medium weight activities, increasing as tolerated. He can follow up prn 3. Left thumb numbness Some numbness in the radial tip of the thumb, more normal sensation in the ulnar tip of the thumb Improving following surgery, but still not yet normal Scribed for Shantell Pennington MD by Smith Tran medical specialist, on 02/08/24 at 10:45 AM, EST. Orders: Orders XR hand LT min 3V Today M79.642 - Pain in left hand Coding Level of Care Code Global (58900) Diagnoses Open nondisplaced fracture of distal phalanx of left thumb with routine healing, subsequent encounter S62.525D Encounter type: subsequent encounter Fracture alignment: nondisplaced Fracture healing: with routine healing Closed fracture dislocation of left thumb with routine healing, subsequent encounter S62.502D Encounter type: subsequent encounter Fracture healing: with routine healing Fracture type: closed Numbness of left thumb R20.0
== END 2024-02-08 11:03 | disposition home or self-care (01) ==
PROVIDERS: PCP Internal Medicine; Visit Provider Orthopaedic Surgery
DX: S62.525D Nondisplaced fracture of distal phalanx of left thumb, subsequent encounter for fracture with routine healing (principal); S62.502D Fracture of unspecified phalanx of left thumb, subsequent encounter for fracture with routine healing; R20.0 Anesthesia of skin
CPT/HCPCS: 99024

== ENCOUNTER 2024-02-08 10:10 | Outpatient (REF) | payer OTHER, SELFPAY ==
--- NOTE | ~2024-02-08 | XR_ITS ---
EXAMINATION: XR HAND, LEFT CLINICAL INFORMATION: Pain COMPARISON: Left hand x-rays every 2023 TECHNIQUE: PA, lateral, and oblique views of the left hand. FINDINGS: Interval removal of K wire from the thumb. Stable positioning of displaced intra-articular fracture through the base of the distal phalanx of the thumb. There is mild overlying soft tissue swelling. Similar punctate radiodensity in the thenar eminence. No other gross abnormality of the left hand. XR/XR hand LT min 3V IMPRESSION: Stable positioning of displaced intra-articular fracture through the base of the distal phalanx of the thumb.
== END 2024-02-08 10:11 | disposition home or self-care (01) ==
LOC: HO.HOSX 10:10
PROVIDERS: Visit Provider Orthopaedic Surgery
DX: M79.642 Pain in left hand (principal); R20.0 Anesthesia of skin; S62.525D Nondisplaced fracture of distal phalanx of left thumb, subsequent encounter for fracture with routine healing; X58.XXXD Exposure to other specified factors, subsequent encounter; Z98.890 Other specified postprocedural states
CPT/HCPCS: 73130; 99212